=== PATIENT | male | born 1925 | race Caucasian/White ===

== ENCOUNTER 2016-08-03 13:42 | Emergency (ER) | payer OTHER ==
[2016-08-03 13:46] VITALS: BMI 28.1
[2016-08-03 15:24] LABS: ALBUMIN 4.1 g/dl (3.4-5.0); ANION GAP 7 (8-16); BILIRUBIN,TOTAL 0.5 mg/dL (0.2-1.0); CALCIUM 9.4 mg/dL (8.5-10.1); CO2 30 mmol/L (21-32); GLUCOSE,RANDOM 79 mg/dL (74-106); SGOT/AST 14 U/L (15-37); SGPT/ALT 22 U/L (12-78); TOT PROT 7.5 g/dl (6.4-8.2)
[2016-08-03 15:26] LABS: INR 1.08 (0.82-1.09); PROTHROMBIN TIME (PATIENT) 11.9 SEC (9.98-11.88)
[2016-08-03 15:27] LABS: ALK PHOS 74 U/L (45-117); TROPONIN I < 0.02 ng/ml (0.00-0.05)
[2016-08-03 15:29] LABS: ACTIVATED PTT 29.6 SECONDS (26.9-34.4)
--- NOTE | 2016-08-03 15:48 | PDOC ---
History of Present Illness - History of Present Illness Initial Comments: 08/03/16 16:40 The patient is a 89 year old male, with a significant past medical history of CAD s/p CABG and hypertension, who presents to the emergency department sent from Dr. Montano office today for diaphoresis, chest pain, and shortness of breath. The patient states his chest pain feels like pressure and has been constant since the onset at the doctor's office around noon today. He reports taking nitroglycerin today. He reports having a diffuse headache at this time. He denies dizziness. He denies fever, chills, nausea, vomit, diarrhea and constipation. He denies dysuria, frequency, urgency and hematuria. Allergies: NKDA Social history: denies toxic habits PCP - Dr. Meyer Software Installation Engineer - Dr. Lyman/Dr. Veloz <Patt Bonner - Last Filed: 08/03/16 17:37> <Kourtney Rey - Last Filed: 08/17/16 12:25> - General Chief Complaint: Chest Pain Stated Complaint: CHEST PAIN Time Seen by Provider: 08/03/16 14:48 Past History <Patt Bonner - Last Filed: 08/03/16 17:37> - Past Medical History Anemia: No Asthma: No Cancer: No Cardiac Disorders: Yes ([place]) CVA: No COPD: No CHF: No Dementia: No Diabetes: No GI Disorders: No Disorders: No HTN: Yes Hypercholesterolemia: Yes Liver Disease: No Seizures: No Thyroid Disease: No - Surgical History Abdominal Surgery: Yes (suzanne.inguinal hernias 10 yrs ago) Appendectomy: No Cardiac Surgery: Yes (5 bypass 1988) Cholecystectomy: No Lung Surgery: No Neurologic Surgery: No Orthopedic Surgery: No - Psycho/Social/Smoking Cessation Hx Suicidal Ideation: No Smoking History: Former smoker Have you smoked in the past 12 months: No Information on smoking cessation initiated: No Hx Alcohol Use: Yes (1 BEER DAILY) Drug/Substance Use Hx: No <Kourtney Rey - Last Filed: 08/17/16 12:25> - Past Medical History Allergies/Adverse Reactions: Allergies Allergy/AdvReac Type Severity Reaction Status Date / Time No Known Allergies Allergy Verified 08/03/16 13:46 Home Medications: Ambulatory Orders Clopidogrel Bisulfate [Plavix] 75 mg PO DAILY 08/16/12 Lisinopril [Prinivil -] 20 mg PO DAILY 07/01/13 Furosemide [Lasix -] 40 mg PO Q48H 08/03/15 Cyanocobalamin (Vitamin B-12) [Vitamin B12] 1,000 mcg PO DAILY 08/03/16 Hydralazine HCl [Apresoline -] 25 mg PO BID 08/03/16 Hydrocortisone Acetate [Anusol Hc Suppository -] 25 mg RC DAILY 08/03/16 Ubidecarenone/Vit E Acetate [Co Q-10 100 mg Softgel] 1 each PO DAILY 08/03/16 Review of Systems - Review of Systems Able to Perform ROS?: Yes Comments:: GENERAL/CONSTITUTIONAL: No fever or chills. No weakness. HEAD, EYES, EARS, NOSE AND THROAT: No change in vision. No ear pain or discharge. No sore throat. CARDIOVASCULAR: +Chest pressure. RESPIRATORY: No cough, wheezing, or hemoptysis. GASTROINTESTINAL: No nausea, vomiting, diarrhea or constipation. GENITOURINARY: No dysuria, frequency, or change in urination. MUSCULOSKELETAL: No joint or muscle swelling or pain. No neck or back pain. SKIN: No rash NEUROLOGIC: No headache, vertigo, loss of consciousness, or change in strength/ sensation. ENDOCRINE: No increased thirst. No abnormal weight change. HEMATOLOGIC/LYMPHATIC: No anemia, easy bleeding, or history of blood clots. ALLERGIC/IMMUNOLOGIC: No hives or skin allergy. <Kourtney Rey - Last Filed: 08/17/16 12:25> *Physical Exam - Vital Signs Last Vital Signs Temp Pulse Resp BP Pulse Ox 97.5 F L 53 L 18 179/73 98 08/03/16 13:43 08/03/16 13:43 08/03/16 13:43 08/03/16 13:43 08/03/16 15:30 <Patt Bonner - Last Filed: 08/03/16 17:37> - Vital Signs Last Vital Signs Temp Pulse Resp BP Pulse Ox 97.5 F L 53 L 18 179/73 98 08/03/16 13:43 08/03/16 13:43 08/03/16 13:43 08/03/16 13:43 08/03/16 15:30 - Physical Exam Comments: GENERAL: Awake, alert, and fully oriented, in no acute distress HEAD: No signs of trauma EYES: PERRLA, EOMI, sclera anicteric, conjunctiva clear ENT: Auricles normal inspection, hearing grossly normal, nares patent, oropharynx clear without exudates. Moist mucosa NECK: Normal ROM, supple, no lymphadenopathy, JVD, or masses LUNGS: Breath sounds equal, clear to auscultation bilaterally. No wheezes, and no crackles HEART: Regular rate and rhythm, normal S1 and S2, no murmurs, rubs or gallops ABDOMEN: Soft, nontender, normoactive bowel sounds. No guarding, no rebound. No masses EXTREMITIES: Normal range of motion, no edema. No clubbing or cyanosis. No cords, erythema, or tenderness NEUROLOGICAL: Cranial nerves II through XII grossly intact. Normal speech, normal gait SKIN: Warm, Dry, normal turgor, no rashes or lesions noted. <Kourtney Rey - Last Filed: 08/17/16 12:25> ED Treatment Course - LABORATORY CBC & Chemistry Diagram: 08/03/16 15:00 08/03/16 14:45 - ADDITIONAL ORDERS Additional order review: Laboratory Results 08/03/16 08/03/16 14:45 14:45 INR 1.08 PTT (Actin FS) 29.6 Sodium 141 Potassium 4.8 Chloride 104 Carbon Dioxide 30 Anion Gap 7 L BUN 29 H Random Glucose 79 Calcium 9.4 Total Bilirubin 0.5 D AST 14 L ALT 22 Alkaline Phosphatase 74 Creatine Kinase 56 Troponin I < 0.02 Total Protein 7.5 Albumin 4.1 D <Patt Bonner - Last Filed: 08/03/16 17:37> - LABORATORY CBC & Chemistry Diagram: 08/03/16 15:00 08/03/16 14:45 - ADDITIONAL ORDERS Additional order review: Laboratory Results 08/03/16 14:45 Sodium 141 Potassium 4.8 Chloride 104 Carbon Dioxide 30 Anion Gap 7 L BUN 29 H Random Glucose 79 Calcium 9.4 Total Bilirubin 0.5 D AST 14 L ALT 22 Alkaline Phosphatase 74 Creatine Kinase 56 Troponin I < 0.02 Total Protein 7.5 Albumin 4.1 D - RADIOLOGY Radiology Studies Ordered: Category Date Time Status CHEST X-RAY PORTABLE* [RAD] Stat Radiology 08/03/16 14:59 Completed <Kourtney Rey - Last Filed: 08/17/16 12:25> Medical Decision Making - Medical Decision Making 08/03/16 17:39 Dr. Lyman was paged via phone answering service at 17:39 requesting a call back for doctor to doctor consult. I have been informed that Dr. Souza is covering for the group and will return my call shortly. <Patt Bonner - Last Filed: 08/03/16 17:37> - Medical Decision Making Discussed with Dr. Souza, covering Dr. Lyman. Family prefers to do serial CE x2, declined admission, as patient becomes extremely agitated when admitted to hospital. Dr. Souza is ok with second CE and if negative, outpatient f/u. <Kourtney Rey - Last Filed: 08/17/16 12:25> *DC/Admit/Observation/Transfer <Patt Bonner - Last Filed: 08/03/16 17:37> <Kourtney Rey - Last Filed: 08/17/16 12:25> Diagnosis at time of Disposition: Chest pain Qualifiers: Chest pain type: unspecified Qualified Code(s): R07.9 - Chest pain, unspecified - Discharge Dispostion Disposition: HOME - Referrals Referrals: Khadar Meyer MD [Primary Care Provider] - - Patient Instructions Printed Discharge Instructions: DI for Chest Pain
[2016-08-03 16:46] LABS: COCKROFT - GAULT 32.75; CREATININE 1.8 mg/dL (0.7-1.3)
[2016-08-03 17:12] LABS: BASOPHIL 0.5 % (0-2.0); EOSINOPHIL 2.6 % (0-4.5); MCH 31.7 pg (25.7-33.7); MCHC 33.2 g/dl (32.0-35.9); MEAN CELL VOLUME 95.6 fl (80-96); MEAN PLT VOLUME 8.5 fl (7.5-11.1); NEUTROPHILS 74.3 % (42.8-82.8); PLATELET COUNT 135 K/MM3 (134-434); RDW 13.6 % (11.9-15.9); WHITE BLOOD COUNT 7.9 K/mm3 (4.0-10.0)
[2016-08-03 19:16] VITALS: TEMP 97.8
[2016-08-03] MEDS ORDERED: ACETAMINOPHEN 325 MG TABLET (FP) PO ONE (19:48)
[2016-08-03] MEDS ORDERED: ACETAMINOPHEN 325 MG TABLET (FP) ONE (19:48)
[2016-08-03 21:30] LABS: TROPONIN I < 0.02 ng/ml (0.00-0.05)
--- NOTE | 2016-08-03 21:40 | PDOC ---
*Physical Exam - Vital Signs Last Vital Signs Temp Pulse Resp BP Pulse Ox 97.8 F 66 18 158/70 100 08/03/16 19:15 08/03/16 19:15 08/03/16 19:15 08/03/16 19:15 08/03/16 19:15 ED Treatment Course - LABORATORY CBC & Chemistry Diagram: 08/03/16 15:00 08/03/16 14:45 - ADDITIONAL ORDERS Additional order review: Laboratory Results 08/03/16 08/03/16 08/03/16 20:24 14:45 14:45 INR 1.08 PTT (Actin FS) 29.6 Sodium 141 Potassium 4.8 Chloride 104 Carbon Dioxide 30 Anion Gap 7 L BUN 29 H Creatinine Y Creat Clearance w eGFR 35.79 Random Glucose 79 Calcium 9.4 Total Bilirubin 0.5 D AST 14 L ALT 22 Alkaline Phosphatase 74 Creatine Kinase 45 56 Troponin I < 0.02 < 0.02 Total Protein 7.5 Albumin 4.1 D 08/03/16 15:00 RBC 4.26 MCV 95.6 MCHC 33.2 RDW 13.6 MPV 8.5 D Neutrophils % 74.3 Lymphocytes % 12.5 D Monocytes % 10.1 Eosinophils % 2.6 Basophils % 0.5 - Medications Given in the ED: ED Medications Discontinued Medications Generic Name Dose Route Start Last Admin Trade Name Christina PRN Reason Stop Dose Admin Acetaminophen 975 mg 08/03/16 19:48 08/03/16 19:56 Tylenol - PO 08/03/16 19:49 975 mg ONCE ONE Administration *DC/Admit/Observation/Transfer Diagnosis at time of Disposition: Chest pain Qualifiers: Chest pain type: unspecified Qualified Code(s): R07.9 - Chest pain, unspecified - Discharge Dispostion Disposition: HOME Condition at time of disposition: Stable Admit: No - Patient Instructions Printed Discharge Instructions: DI for Chest Pain
[2016-08-03 21:48] VITALS: BP 152/65; PULSE 56
--- NOTE | 2016-08-04 11:11 | EKG ---
Test Reason : Blood Pressure : / mmHG Vent. Rate : 050 BPM Atrial Rate : 050 BPM P-R Int : 240 ms QRS Dur : 148 ms QT Int : 504 ms P-R-T Axes : 050 -65 035 degrees QTc Int : 459 ms SINUS BRADYCARDIA WITH 1ST DEGREE A-V BLOCK LEFT AXIS DEVIATION LEFT BUNDLE BRANCH BLOCK ABNORMAL ECG WHEN COMPARED WITH ECG OF 03-AUG-2015 19:13, NO SIGNIFICANT CHANGE WAS FOUND Confirmed by FRIDA BLAND MD ([id number]) on 08/04/2016 11:10:43 AM Referred By: Confirmed By:FRIDA BLAND MD
== END 2016-08-03 21:50 | disposition home or self-care (01) ==
LOC: JER 13:42
DX: I25.10 Atherosclerotic heart disease of native coronary artery without angina pectoris (principal); I11.9 Hypertensive heart disease without heart failure; Z95.1 Presence of aortocoronary bypass graft; I25.2 Old myocardial infarction
CPT/HCPCS: 36415; 71010-TC; 80053; 82550; 82565; 84484; 85025; 85610; 85730; 93005; 93010; 99285-25

== ENCOUNTER 2017-08-16 12:54 | Inpatient (IN) | payer OTHER ==
[2017-08-16 13:07] VITALS: BMI 27.8
[2017-08-16] MEDS ORDERED: SODIUM CHLORIDE 500 ML IV STA (14:04)
--- NOTE | 2017-08-16 14:11 | PDOC ---
History of Present Illness - General Chief Complaint: Diarrhea Stated Complaint: DIARRHEA Time Seen by Provider: 08/16/17 13:37 History Source: Patient, Family Exam Limitations: No Limitations - History of Present Illness Travel History: No Initial Comments: 08/16/17 14:05 Patient brought to emergency department with recommendation from Dr. Meyer , for evaluation of worsening diarrhea this past week. States has had too numerous to count episodes which Dr. Pedro and Mitch are aware of. [facility] had some orders and laboratory work drawn and sent to [facility] yesterday, also included requesting for stool samples which patient has brought to the emergency department. [facility] obtain this morning . Patient's suffers from chronic intermittent bouts of loose and watery stool that generally self resolve. Dr. Pedro manages intermittent constipation with MiraLAX but recommends patient continue taking throughout his stool loose versus constipated cycle to avoid any obstruction. This episode has lasted for approximately one week, and daughter feels has been worsening. Patient denies fever, nausea or vomiting, states has some intermittent cramping for episode of diarrhea. Denies history of GI bleed, although patient takes Plavix for cardiac history and surgery. Patient denies recent travel, any known tainted food ingestion, no one else at home is sick. No recent change in any medications . States lives alone however daughter lives close by. Denies fevers, cough, ear or throat pain, no recent illness although was treated with antibiotics early June for upper respiratory illness. C. difficile was tested at that time which was negative. Has some increasing renal dysfunction but no history of liver disease or hepatitis. Patient states feels bloated but is not severely uncomfortable or in pain. 08/16/17 14:12 Timing/Duration: reports: getting worse Quality: reports: moderate Abdominal Pain Onset Location: reports: generalized abdomen Pain Radiation: reports: no radiation Activities at Onset: reports: none Past History - Travel Traveled outside of the country in the last 30 days: No Close contact w/someone who was outside of country & ill: No - Past Medical History Allergies/Adverse Reactions: Allergies Allergy/AdvReac Type Severity Reaction Status Date / Time No Known Allergies Allergy Verified 08/16/17 13:04 Home Medications: Ambulatory Orders Clopidogrel Bisulfate [Plavix] 75 mg PO DAILY 08/16/12 Lisinopril [Prinivil -] 20 mg PO DAILY 07/01/13 Furosemide [Lasix -] 40 mg PO Q48H 08/03/15 Cyanocobalamin (Vitamin B-12) [Vitamin B12] 1,000 mcg PO DAILY 08/03/16 Ubidecarenone/Vit E Acet [Co Q-10 100 mg Softgel] 1 each PO DAILY 08/03/16 hydrALAZINE HCL [Apresoline -] 25 mg PO BID 08/03/16 Allopurinol [Zyloprim -] 100 mg PO DAILY 08/16/17 Atorvastatin Ca [Lipitor] 20 mg PO HS 08/16/17 Metoprolol Tartrate 50 mg PO BID 08/16/17 Anemia: No Asthma: No Cancer: No Cardiac Disorders: Yes ([place]) CVA: No COPD: No CHF: No Dementia: No Diabetes: No GI Disorders: No Disorders: No HTN: Yes Hypercholesterolemia: Yes Liver Disease: No Seizures: No Thyroid Disease: No - Surgical History Abdominal Surgery: Yes (suzanne.inguinal hernias 10 yrs ago) Appendectomy: No Cardiac Surgery: Yes (5 bypass 1988) Cholecystectomy: No Lung Surgery: No Neurologic Surgery: No Orthopedic Surgery: No - Suicide/Smoking/Psychosocial Hx Smoking History: Former smoker Have you smoked in the past 12 months: No Information on smoking cessation initiated: No Hx Alcohol Use: Yes (1 BEER DAILY) Drug/Substance Use Hx: No Abd/GI Specific PMHX - Complaint Specific PMHX Colitis: Yes Hepatitis: No Irritable Bowel Synd (IBS): Yes (questionable- never diagnosed ) GI Ulcer Disease: No Review of Systems - Review of Systems Able to Perform ROS?: Yes Is the patient limited Turkish proficient: Yes Constitutional: Yes: Symptoms Reported, See HPI, Malaise. No: Loss of Appetite HEENTM: Yes: See HPI, Other (wears hearing aids bilateral ). No: Symptoms Reported Respiratory: Yes: See HPI. No: Symptoms reported, Cough, Shortness of Breath, Wheezing Cardiac (ROS): Yes: See HPI, Edema (chroninc peripheral edema). No: Symptoms Reported, Chest Pain ABD/GI: Yes: Symptoms Reported, See HPI, Abdominal Distended, Diarrhea, Abdominal cramping. No: Nausea, Rectal Bleeding, Vomiting, Tarry Stools : Yes: See HPI. No: Symptoms Reported Integumentary: Yes: See HPI. No: Symptoms Reported Neurological: Yes: See HPI. No: Symptoms reported, Headache All Other Systems: Reviewed and Negative *Physical Exam - Vital Signs Last Vital Signs Temp Pulse Resp BP Pulse Ox 97.6 F 73 19 103/52 99 08/16/17 13:04 08/16/17 13:04 08/16/17 13:04 08/16/17 13:04 08/16/17 13:04 - Physical Exam General Appearance: Yes: Nourished, Appropriately Dressed, Mild Distress, Moderate Distress HEENT: positive: KATHRYN (very pale conjuctivae). negative: Rhinorrhea, Sinus Tenderness Neck: positive: Supple. negative: Lymphadenopathy (R), Lymphadenopathy (L) Respiratory/Chest: positive: Lungs Clear, Normal Breath Sounds. negative: Crackles, Wheezing Cardiovascular: positive: Regular Rhythm Gastrointestinal/Abdominal: positive: Soft. negative: Tender (bloated/ distended abd), Guarding, Rebound, Tenderness, Hepatomegaly, Spleenomegaly Musculoskeletal: positive: Other. negative: Normal Inspection, CVA Tenderness Extremity: positive: Normal Capillary Refill, Normal Inspection, Normal Range of Motion. negative: Tender Integumentary: positive: Warm, Pale (very pale ) Neurologic: positive: rock star II-XII NML intact, Fully Oriented, Alert, Normal Mood/ Affect, Normal Response, Motor Strength 5/ ED Treatment Course - LABORATORY CBC & Chemistry Diagram: 08/16/17 14:48 08/16/17 14:48 - RADIOLOGY Radiology Studies Ordered: Category Date Time Status CHEST PA & LAT [RAD] Stat Radiology 08/16/17 13:59 Ordered Medical Decision Making - Medical Decision Making 08/16/17 14:[address] Meyer who has requested patient to be admitted for further evaluation, hydration, and testing. patient updated to plan. 08/16/17 14:43 08/16/17 14:54 Dr Soria returned call, understands patient admission and will see patient here when possible. *DC/Admit/Observation/Transfer Diagnosis at time of Disposition: Acute diarrhea Renal failure Qualifiers: Renal failure chronicity: unspecified chronicity Qualified Code(s): N19 - Unspecified kidney failure - Discharge Dispostion Condition at time of disposition: Stable Decision to Admit order: Yes - Referrals - Patient Instructions - Post Discharge Activity
[2017-08-16 15:04] LABS: BASO % 0.3 % (0-2.0); EOS % 22.7 % (0-4.5); HEMATOCRIT 32.6 % (35.4-49); HEMOGLOBIN 11.1 GM/dL (11.7-16.9); LYMPH % 11.6 % (8-40); MCH 33.2 pg (25.7-33.7); MEAN CELL VOLUME 97.5 fl (80-96); MEAN PLT VOLUME 7.9 fl (7.5-11.1); MONO % 10.3 % (3.8-10.2); NEUT % 55.1 % (42.8-82.8); PLATELET COUNT 149 K/MM3 (134-434); RBC 3.35 M/mm3 (4.00-5.60); RDW 13.8 % (11.9-15.9); WHITE BLOOD COUNT 10.1 K/mm3 (4.0-10.0)
[2017-08-16 15:24] LABS: ALBUMIN 3.1 g/dl (3.4-5.0); ANION GAP 10 (8-16); BLOOD UREA NITROGEN 54 mg/dL (7-18); CALCIUM 8.8 mg/dL (8.5-10.1); CHLORIDE 108 mmol/L (98-107); CO2 22 mmol/L (21-32); CREATININE 3.6 mg/dL (0.7-1.3); GLUCOSE,RANDOM 83 mg/dL (74-106); LIPASE 175 U/L (73-393); SODIUM 140 mmol/L (136-145)
[2017-08-16] MEDS ORDERED: SODIUM CHLORIDE 1,000 ML IV SCH (15:30)
--- NOTE | 2017-08-16 15:30 | HP ---
CHIEF COMPLAINT: Diarrhea PCP: Dr. Meyer GI: Dr. Barton HISTORY OF PRESENT ILLNESS: 89 year-old male with a PMH significant for HTN, HLD, CAD s/p CABG x 5v, Kaposi' s sarcoma,recurrent episodes of diarrhea followed by Dr. Barton as an outpatient. Patient's diarrhea episodes are usually self-limiting. However, he presents today to the ED with diarrhea x 7 days with episodes too numerous to count. Patient complains of fatigue, SOB, GUPTA, decreased exercise tolerance x 1 month. He complains of worsening lower extremity edema. He denies PND or orthopnea. He denies fever, sweats, chills, nausea and vomiting. Denies hematuria, hematemesis, hematochezia. Was on antibiotics in early June for an upper respiratory infection and c. diff study from that time was negative. ER course was notable for: (1) BUN 54, Cr 3.6 (baseline 1.8) (2) BNP 1919 (3) Occult stool negative (4) Eosinophils 22.7 Recent Travel: No PAST MEDICAL HISTORY: Hypertension Hyperlipidemia Coronary artery disease s/p CABG x 5v Kaposi's sarcoma Recurrent diarrhea PAST SURGICAL HISTORY: Bilateral hernia repair Deviated septum repair Social History: Smoking: quit 70 years ago Alcohol: occasional beer Drugs: no Family History: Allergies No Known Allergies Allergy (Verified 08/16/17 13:04) HOME MEDICATIONS: Home Medications Medication Instructions Recorded Clopidogrel Bisulfate [Plavix] 75 mg PO DAILY 08/16/12 Lisinopril [Prinivil -] 20 mg PO DAILY 07/01/13 Furosemide [Lasix -] 40 mg PO Q48H 08/03/15 Cyanocobalamin (Vitamin B-12) 1,000 mcg PO DAILY 08/03/16 [Vitamin B12] Hydrocortisone Acetate [Anusol Hc 25 mg RC DAILY 08/03/16 Suppository -] Ubidecarenone/Vit E Acet [Co Q-10 1 each PO DAILY 08/03/16 100 mg Softgel] hydrALAZINE HCL [Apresoline -] 25 mg PO BID 08/03/16 REVIEW OF SYSTEMS CONSTITUTIONAL: +fatigue, weakness Absent: fever, chills, diaphoresis, malaise, loss of appetite, weight change HEENT: Absent: rhinorrhea, nasal congestion, throat pain, throat swelling, difficulty swallowing, mouth swelling, ear pain, eye pain, visual changes CARDIOVASCULAR: +SOB, GUPTA, decreased exercise tolerance, worsening bilateral lower extremity edema Absent: chest pain, syncope, palpitations, irregular heart rate, lightheadedness RESPIRATORY: Absent: cough, shortness of breath, dyspnea with exertion, orthopnea, wheezing, stridor, hemoptysis GASTROINTESTINAL: Absent: abdominal pain, abdominal distension, nausea, vomiting, diarrhea, constipation, melena, hematochezia GENITOURINARY: Absent: dysuria, frequency, urgency, hesitancy, hematuria, flank pain, genital pain MUSCULOSKELETAL: Absent: myalgia, arthralgia, joint swelling, back pain, neck pain SKIN: Absent: rash, itching, pallor HEMATOLOGIC/IMMUNOLOGIC: Absent: easy bleeding, easy bruising, lymphadenopathy, frequent infections ENDOCRINE: Absent: unexplained weight gain, unexplained weight loss, heat intolerance, cold intolerance NEUROLOGIC: Absent: headache, focal weakness or paresthesias, dizziness, unsteady gait, seizure, mental status changes, bladder or bowel incontinence PSYCHIATRIC: Absent: anxiety, depression, suicidal or homicidal ideation, hallucinations. PHYSICAL EXAMINATION Vital Signs - 24 hr 08/16/17 08/16/17 13:04 14:49 Temperature 97.6 F Pulse Rate 73 Respiratory 19 Rate Blood Pressure 103/52 O2 Sat by Pulse 99 99 Oximetry (%) GENERAL: Awake, alert, and fully oriented, in no acute distress. HEAD: Normal with no signs of trauma. EYES: Pupils equal, round and reactive to light, extraocular movements intact, sclera anicteric, conjunctiva clear. No lid lag. EARS, NOSE, THROAT: Ears normal, nares patent, oropharynx clear without exudates. Moist mucous membranes. NECK: Normal range of motion, supple without lymphadenopathy, JVD, or masses. LUNGS: Breath sounds equal, clear to auscultation bilaterally. No wheezes, and no crackles. No accessory muscle use. HEART: Regular rate and rhythm, normal S1 and S2 ABDOMEN: Soft, nontender, not distended, normoactive bowel sounds, no guarding, no rebound, no masses MUSCULOSKELETAL: Normal range of motion at all joints. No bony deformities or tenderness. No CVA tenderness. UPPER EXTREMITIES: 2+ pulses, warm, well-perfused. No cyanosis. No clubbing. No peripheral edema. LOWER EXTREMITIES: 2+ pulses, warm, well-perfused. No calf tenderness. 3+ RLE pedal edema extending to knee; 2+ LLE pedal edema extending to knee; bilateral venous stasis changes; dessicated, dark-pigmented lesions on left foot NEUROLOGICAL: Cranial nerves II-XII intact. Normal speech. Laboratory Results - last 24 hr 08/16/17 08/16/17 14:20 14:48 WBC 10.1 H RBC 3.35 L D Hgb 11.1 L D Hct 32.6 L D MCV 97.5 H MCH 33.2 MCHC 34.0 RDW 13.8 Plt Count 149 MPV 7.9 Neutrophils % 55.1 D Lymphocytes % 11.6 Monocytes % 10.3 H Eosinophils % 22.7 H* D Basophils % 0.3 Nucleated RBC % 0 Stool Occult Blood Negative ASSESSMENT/PLAN 89 year-old male with a PMH significant for HTN, HLD, CAD s/p CABG x 5v, Kaposi' s sarcoma, HIV, and recurrent episodes of diarrhea. Placed on observation for diarrhea. Diarrhea --monitor electrolytes closely --continue miralax daily --IV fluids --CTAP pending --last colonoscopy 10 years ago --stool studies --Dr. 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 --Cr 3.6, baseline ~1.8 --hold home lasix, ACEI/ARB --IV fluids r/o heart failure --per daughter who is a nurse at [employer], no previous diagnosis of heart failure --she has noticed worsening lower extremity edema, increased SOB, decreased exercise tolerance x 1 month --BNP 1919 (last measured 06/2013 @ 649) --echo ordered --CXR pending Hyperlipidemia --continue Lipitor Kaposi's sarcoma --see pathology reports 02/08/16 and 04/17/16 Hypomagnesemia --repleted FEN Fluids: NS @ 75mL/hr Electrolytes: replete as indicated Nutrition: clears DVT prophylaxis: subq heparin Physical therapy Dispo: continues to require observation. Full code. Visit type - Emergency Visit Emergency Visit: Yes ED Registration Date: 08/16/17 Care time: The patient presented to the Emergency Department on the above date and was hospitalized for further evaluation of their emergent condition. - New Patient This patient is new to me today: Yes Date on this admission: 08/17/17 - Critical Care Critical Care patient: No Hospitalist Screening - Colonoscopy Questionnaire Colonoscopy Questionnaire: Colonoscopy Questionnaire - Patient: 50 - 75 years old and never had a screening colonoscopy: No History of colon or rectal polyps, or CA: No History of IBD, Crohn's disease or UC: No History of abdominal radiation therapy as a child: No - Relative: 1 with colon or rectal CA, or polyps at age 60 or younger: Unknown Colon or rectal CA diagnosed at age 45 or younger: Unknown Multiple relatives with colon or rectal CA: Unknown - Outcome: Screening Result: Negative Screen
[2017-08-16 15:32] LABS: INR 1.2 (0.82-1.09); PROTHROMBIN TIME (PATIENT) 13.6 SEC (9.7-13.0)
[2017-08-16 15:38] LABS: ALK PHOS 88 U/L (45-117); BILIRUBIN,TOTAL 0.5 mg/dL (0.2-1.0); POTASSIUM 4.1 mmol/L (3.5-5.1); SGOT/AST 15 U/L (15-37); SGPT/ALT 11 U/L (12-78); TOT PROT 6.4 g/dl (6.4-8.2)
[2017-08-16 16:55] LABS: URINE APPEARANCE SLCLOUDY; URINE BILIRUBIN NEGATIVE (<2.0 mg/dL); URINE COLOR YELLOW; URINE GLUCOSE (UA) NEGATIVE (NEGATIVE); URINE KETONE NEGATIVE (NEGATIVE); URINE LEUK ESTERASE NEGATIVE (NEGATIVE); URINE NITRITE NEGATIVE (NEGATIVE); URINE PROTEIN NEGATIVE (NEGATIVE); URINE UROBILINOGEN NEGATIVE mg/dL (0.2-1.0)
[2017-08-16 18:50] LABS: PLATELET ESTIMATE ADEQUATE
--- NOTE | 2017-08-16 21:03 | CON.GI ---
Consult Consult Specialty:: Gastroenterology Referred by:: Dr Meyer Reason for Consultation:: Diarrhea - History of Present Illness Chief Complaint: Diarrhea History of Present Illness: 89M presents with intractible diarrhea, azotemia and dehydration. He has been having over 10 liquidy and nonbloody diarrhea movements daily for the past few days. He denies abdominal pain, fevers and tenesmus. He denies recent foreign travel but believes that he did take an antibiotic several months ago for a URI. I have been seeing him for many years for apparent paradoxical diarrhea which has been managed with Miralax. I last saw him in 07/11 when a stool screen for C diff toxin and enteric pathogens was unrevealing. He again responded well to Miralax and Beano. He last had both an EGD and a colonoscopy on 12/08/05 which revealed sigmoid spasms but an otherwise normal colon. EGD revealed multiple small shallow gastric body ulcers and a small nodule in the antrum. Biopsies failed to reveal H. pylori. I diagnosed his grandaughter with ulcerative colitis. The patient is not HIV positive - History Source History Provided By: Patient, Medical Record Limitations to Obtaining History: No Limitations - Past Medical History Cardio/Vascular: Yes: CAD (s/p CABG 1987), HTN, Hyperlipdemia Gastrointestinal: Yes: Constipation, Gastritis, GERD, Hemorrhoids, Peptic Ulcer Disease (duodenal ulcer 2001, gastric ulcers 2005) Hepatobiliary: Yes: Cholelithiasis Renal/: Yes: BPH Musculoskeletal: Yes: Chronic low back pain (spinal stenosis) Rheumatology: Yes: Gout Dermatology: Yes: Other (Multiple cutaneous Kaposi sarcoma excisions) - Past Surgical History Past Surgical History: Yes: CABG (1987), Colonoscopy, Hernia Repair ([place] and [place] ), Tonsillectomy, Upper Endoscopy Additional Surgical History: multiple Kaposi sarcoma excisions. bilateral stapedectomies. deviated septum repair and nasal polypectomy - Alcohol/Substance Use Hx Alcohol Use: Yes (1 BEER DAILY) - Smoking History Smoking history: Former smoker Have you smoked in the past 12 months: No - Social History Usual Living Arrangement: With Child ADL: Family Assistance Place of : [facility] History of Recent Travel: No Home Medications - Allergies Allergies/Adverse Reactions: Allergies Allergy/AdvReac Type Severity Reaction Status Date / Time No Known Allergies Allergy Verified 08/16/17 13:04 - Home Medications Home Medications: Ambulatory Orders Clopidogrel Bisulfate [Plavix] 75 mg PO DAILY 08/16/12 Lisinopril [Prinivil -] 20 mg PO DAILY 07/01/13 Furosemide [Lasix -] 40 mg PO Q48H 08/03/15 Cyanocobalamin (Vitamin B-12) [Vitamin B12] 1,000 mcg PO DAILY 08/03/16 Ubidecarenone/Vit E Acet [Co Q-10 100 mg Softgel] 1 each PO DAILY 08/03/16 hydrALAZINE HCL [Apresoline -] 25 mg PO BID 08/03/16 Allopurinol [Zyloprim -] 100 mg PO DAILY 08/16/17 Atorvastatin Ca [Lipitor] 20 mg PO HS 08/16/17 Metoprolol Tartrate 50 mg PO BID 08/16/17 Family Disease History - Family Disease History Family Disease History: Heart Disease: Mother ( CHF), CA: Brother (prostate cancer), Sister (breast cancer), Other: Father ( septic shock) Other Family History: grandaughter has ulcerative colitis Review of Systems - Review of Systems Constitutional: reports: Weakness Eyes: reports: No Symptoms HENT: reports: No Symptoms Neck: reports: No Symptoms Cardiovascular: reports: No Symptoms Respiratory: reports: No Symptoms Gastrointestinal: reports: Bloating, Diarrhea Genitourinary: reports: No Symptoms Musculoskeletal: reports: Back Pain Neurological: reports: No Symptoms Physical Exam-GI Vital Signs: Vital Signs Temperature 97.8 F 08/16/17 17:45 Pulse Rate 78 08/16/17 17:45 Respiratory Rate 18 08/16/17 17:45 Blood Pressure 128/54 08/16/17 17:45 O2 Sat by Pulse Oximetry (%) 99 08/16/17 17:45 CBC,CMP WBC 10.1 K/mm3 (4.0-10.0) H 08/16/17 14:48 RBC 3.35 M/mm3 (4.00-5.60) L D 08/16/17 14:48 Hgb 11.1 GM/dL (11.7-16.9) L D 08/16/17 14:48 Hct 32.6 % (35.4-49) L D 08/16/17 14:48 MCV 97.5 fl (80-96) H 08/16/17 14:48 MCH 33.2 pg (25.7-33.7) 08/16/17 14:48 MCHC 34.0 g/dl (32.0-35.9) 08/16/17 14:48 RDW 13.8 % (11.9-15.9) 08/16/17 14:48 Plt Count 149 K/MM3 (134-434) 08/16/17 14:48 MPV 7.9 fl (7.5-11.1) 08/16/17 14:48 Neutrophils % 55.1 % (42.8-82.8) D 08/16/17 14:48 Neutrophils % (Manual) 52.0 % (42.8-82.8) 08/16/17 14:48 Band Neutrophils % 0.0 % 08/16/17 14:48 Lymphocytes % 11.6 % (8-40) 08/16/17 14:48 Lymphocytes % (Manual) 13.0 % (8-40) 08/16/17 14:48 Monocytes % 10.3 % (3.8-10.2) H 08/16/17 14:48 Monocytes % (Manual) 9 % (3.8-10.2) 08/16/17 14:48 Eosinophils % 22.7 % (0-4.5) H* D 08/16/17 14:48 Eosinophils % (Manual) 25.0 % (0-4.5) H 08/16/17 14:48 Basophils % 0.3 % (0-2.0) 08/16/17 14:48 Basophils % (Manual) 1.0 % (0-2.0) 08/16/17 14:48 Nucleated RBC % 0 % (0-0) 08/16/17 14:48 Platelet Estimate Adequate 08/16/17 14:48 Sodium 140 mmol/L (136-145) 08/16/17 14:48 Potassium 4.1 mmol/L (3.5-5.1) 08/16/17 14:48 Chloride 108 mmol/L (98-107) H 08/16/17 14:48 Carbon Dioxide 22 mmol/L (21-32) D 08/16/17 14:48 Anion Gap 10 (8-16) 08/16/17 14:48 BUN 54 mg/dL (7-18) H D 08/16/17 14:48 Creatinine 3.6 mg/dL (0.7-1.3) H D 08/16/17 14:48 Creat Clearance w eGFR 16.04 (>60) 08/16/17 14:48 Random Glucose 83 mg/dL (74-106) 08/16/17 14:48 Calcium 8.8 mg/dL (8.5-10.1) 08/16/17 14:48 Phosphorus 3.7 mg/dL (2.5-4.9) 08/16/17 19:53 Magnesium 1.7 mg/dL (1.8-2.4) L 08/16/17 19:45 Total Bilirubin 0.5 mg/dL (0.2-1.0) 08/16/17 14:48 AST 15 U/L (15-37) 08/16/17 14:48 ALT 11 U/L (12-78) L D 08/16/17 14:48 Alkaline Phosphatase 88 U/L (45-117) 08/16/17 14:48 B-Natriuretic Peptide 1919.88 pg/ml (5-450) H 08/16/17 14:48 Total Protein 6.4 g/dl (6.4-8.2) 08/16/17 14:48 Albumin 3.1 g/dl (3.4-5.0) L D 08/16/17 14:48 Lipase 175 U/L (73-393) 08/16/17 14:48 Current Medications Generic Name Dose Route Start Last Admin Trade Name Freq PRN Reason Stop Dose Admin Allopurinol 100 mg 08/17/17 10:00 Zyloprim - PO DAILY ERIN Atorvastatin Calcium 20 mg 08/16/17 22:00 Lipitor - PO HS ERIN Clopidogrel Bisulfate 75 mg 08/17/17 10:00 Plavix - PO DAILY ERIN Heparin Sodium (Porcine) 5,000 unit 08/16/17 15:30 Heparin - SQ TID ERIN Hydralazine HCl 25 mg 08/16/17 22:00 Apresoline - PO BID ERIN Sodium Chloride 1,000 mls @ 75 mls/hr 08/16/17 15:30 08/16/17 18:02 Normal Saline - IV 75 mls/hr ASDIR ERIN Administration Magnesium Sulfate 2 gm 08/16/17 21:12 Magnesium Sulfate IVPB 08/16/17 21:13 ONCE ONE Metoprolol Tartrate 50 mg 08/16/17 22:00 Lopressor - PO BID ERIN Constitutional: Yes: Calm Eyes: Yes: Conjunctiva Clear HENT: Yes: Normocephalic Neck: Yes: Supple Cardiovascular: Yes: Regular Rate and Rhythm, Other (healed median sternotomy incision) Respiratory: Yes: CTA Bilaterally Gastrointestinal Inspection: Yes: Distention, Scars (healed RIH and LIH incisions) ...Auscultate: Yes: Hyperactive Bowel Sounds ...Palpate: Yes: Soft, Other (nontender) ...Percussion: Yes: Tympanitic ...Rectal Exam: Yes: Deferred (patient complains that he is very sore from wiping, Rectal exam in office on 07/04/17 revealed a 2+prostate and brown guaiac negative stool) Edema: No Peripheral Pulses WNL: Yes Neurological: Yes: Alert, Oriented Labs: CBC, BMP 08/16/17 14:48 08/16/17 14:48 INR, PTT INR 1.20 (0.82-1.09) H 08/16/17 14:48 Laboratory Tests 08/16/17 08/16/17 08/16/17 14:48 14:48 19:45 WBC 10.1 H Eosinophils % 22.7 H* D BUN 54 H D Creatinine 3.6 H D Magnesium 1.7 L Albumin 3.1 L D Imaging - Results Cat Scan: Report Reviewed (Wen Beckwith Name: YESICA GARCIA DEPARTMENT OF RADIOLOGY Phys: Sil Moran NP : [id number] Age: 89 Sex: M [facility] Acct: [id number] Loc: [address] Exam Date: 08/16/17 Status: [place] [address] Unit Number: [id number] EXAM#: TYPE/EXAM: RESULT: [id number] CT/ABDOMEN PELVIS CT W/O CONTR INDICATION: Diarrhea. TECHNIQUE : CT scan of the abdomen and pelvis without oral contrast and without intravenous contrast. COMPARISON: 11/09/2005 CT abdomen and pelvis. FINDINGS: Evaluation of the solid viscera, bowel and vessels is limited without contrast. There is a 3 mm solid noncalcified nodule in the posterior right lung base (image 16 of series 4) there is minimal dependent change in the left lung base. The visualized lung bases are otherwise clear. The heart is not enlarged. There is severe three-vessel coronary artery calcific atherosclerosis. There is aortic valve calcification. Please correlate for aortic stenosis. Normal liver size and contour. The gallbladder is not pathologically distended and contains calcified gallstones. The common bile duct is not dilated. The unenhanced pancreas is unremarkable. Normal size spleen. No adrenal gland mass or nodule. There is symmetric mild renal atrophy. There are no renal or ureteral calculi. No hydroureteronephrosis. There are bilateral renal cortical cysts measuring up to 2.7 x 2.2 cm in the left kidney. There is also a 3.3 x 3.3 cm lower pole left renal sinus cyst. There is posterior saccular outpouching in the infrarenal abdominal aorta which measures 2.5 cm in mid sagittal plane diameter , new since 11/09/2005. There is moderately severe calcification of the abdominal aorta and branch vessels. No definite pathologically enlarged lymph nodes by CT size criteria within the abdomen or pelvis. Normal caliber large and small bowel. There is liquid stool throughout the colon compatible with the provided clinical history of diarrheal illness. A normal- appearing retrocecal appendix is visualized, with the tip contacting the liver. Some mucosal fat deposition within the distal ileum is most compatible with chronic sequela of prior bowel wall inflammation. There is no intraperitoneal free air or free fluid. There is marked prostatomegaly, measuring 6.0 x 7.5 cm, indenting the base the urinary bladder. The urinary bladder is underdistended which limits evaluation. The urinary bladder wall does appear to be diffusely prominent, despite underdistention with submucosal fat deposition from prior inflammation. There are small bilateral inguinal hernias containing fat only. There is osseous demineralization with no evidence of acute fracture. Spondylosis in the visualized spine with multilevel canal and neural foraminal stenosis. There is severe canal stenosis at L4-L5 and moderate to severe canal stenosis at L2-L3 and L3-L4 secondary to bulging annulus, facet arthropathy and thickening of ligamentum flavum. There is severe narrowing of the L4- L5 neural foramina (left worse than right) and right L5-S1 neural foramen with compression of the exiting nerve roots. IMPRESSION: 1. Liquid stool throughout the colon compatible with the provided clinical history of diarrhea limits. 2. No evidence of bowel obstruction or diverticulitis. No definite bowel wall thickening. Normal- appearing appendix. 3. Cholelithiasis. No CT evidence of acute cholecystitis or biliary ductal dilatation. 4. Marked prostatomegaly. Please correlate with PSA and physical exam. 5. Diffusely prominent urinary bladder wall may be attributed to some combination of underdistention, chronic outlet obstruction and/or cystitis. Please correlate clinically, with urinalysis. 6. Please refer to the report above for other findings. Reported By: Adalgisa Garcia DO 08/16/171932 Technologist: Pratik Campuzano Transcribed Date/Time: 08/16/171932 National Sales Representative: Adalgisa Garcia DO Printed Date/Time: By: Signed by: Adalgisa Garcia Signed on: 16-Aug-2017 19:35) Assessment/Plan The CT reveals a fluid filled colon suggestive of colitis as there is obstruction seen. 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 Pancreatic insufficiency has previously been excluded. I will order a VIP level. I have advised a sigmoidoscopy to help establish a diagnosis. I have discussed the potential risks of perforation and hemorrhage. Yesica has consented. IV fluid rehydration has been started. I will increase the rate. Stools will be collected for cultures including parasites given his eosinophilia.
[2017-08-16] MEDS ORDERED: MAGNESIUM 2GM/50ML STERILE WATER IVPB IVPB ONE (21:12)
[2017-08-16] MEDS: HEPARIN NA (PORCINE) 5,000 UNITS/ML 1ML VIAL SQ SCH (23:17)
[2017-08-16] MEDS: DEXTROSE 5%-0.45% SALINE 1,000 ML IV SCH (23:26)
[2017-08-16] MEDS: hydrALAZINE HCL 25 MG TABLET (FP) PO SCH (23:27)
[2017-08-16] MEDS: METOPROLOL TARTRATE 50 MG TABLET (FP) PO SCH (23:27)
[2017-08-16] MEDS: ATORVASTATIN CA 20 MG TABLET (FP) PO SCH (23:27)
[2017-08-17] MEDS: HEPARIN NA (PORCINE) 5,000 UNITS/ML 1ML VIAL SQ SCH (06:34)
[2017-08-17 06:59] LABS: HEMATOCRIT 28.8 % (35.4-49); HEMOGLOBIN 9.9 GM/dL (11.7-16.9); MCH 33.6 pg (25.7-33.7); MCHC 34.4 g/dl (32.0-35.9); MEAN CELL VOLUME 97.6 fl (80-96); PLATELET COUNT 134 K/MM3 (134-434); RBC 2.95 M/mm3 (4.00-5.60); WHITE BLOOD COUNT 9.2 K/mm3 (4.0-10.0)
[2017-08-17 07:28] LABS: ALBUMIN 2.7 g/dl (3.4-5.0); ANION GAP 6 (8-16); BILIRUBIN,TOTAL 0.4 mg/dL (0.2-1.0); BLOOD UREA NITROGEN 54 mg/dL (7-18); CALCIUM 8.1 mg/dL (8.5-10.1); CHLORIDE 112 mmol/L (98-107); CO2 22 mmol/L (21-32); CREATININE 3.1 mg/dL (0.7-1.3); GLUCOSE,RANDOM 119 mg/dL (74-106); MAGNESIUM 2.5 mg/dL (1.8-2.4); PHOSPHOROUS 3.7 mg/dL (2.5-4.9); POTASSIUM 4.3 mmol/L (3.5-5.1); SGOT/AST 6 U/L (15-37); SGPT/ALT 8 U/L (12-78); SODIUM 140 mmol/L (136-145)
[2017-08-17 07:29] LABS: ALK PHOS 76 U/L (45-117); TOT PROT 5.5 g/dl (6.4-8.2)
[2017-08-17] MEDS: CLOPIDOGREL BISULFATE 75 MG TABLET (FP) PO SCH (09:32)
[2017-08-17] MEDS ORDERED: METOPROLOL TARTRATE 50 MG TABLET (FP) ONE (09:34)
[2017-08-17] MEDS ORDERED: hydrALAZINE HCL 25 MG TABLET (FP) ONE (09:34)
[2017-08-17] MEDS ORDERED: ALLOPURINOL 100 MG TABLET (FP) ONE (09:35)
[2017-08-17] MEDS: ALLOPURINOL 100 MG TABLET (FP) PO SCH (09:44)
[2017-08-17] MEDS: PANTOPRAZOLE 40 MG TABLET (FP) PO SCH ×2 (09:44→21:32)
[2017-08-17] MEDS: hydrALAZINE HCL 25 MG TABLET (FP) PO SCH ×2 (09:44→21:32)
[2017-08-17] MEDS: METOPROLOL TARTRATE 50 MG TABLET (FP) PO SCH ×2 (09:44→21:32)
[2017-08-17 09:47] LABS: MONO % 9.4 % (3.8-10.2)
[2017-08-17 09:48] LABS: BASO % 0.2 % (0-2.0); EOS % 25.4 % (0-4.5)
--- NOTE | 2017-08-17 09:53 | PN ---
Progress Note (short form) - Note Progress Note: Patient seen and examined this AM VS stable; lab reviewed. sigmoidoscopy done today by GI physician showed no colitis; he suspects viral gastroenteritis. The patient's baseline BUN/creatinine are 40 and 2.0. He previously had mild eosinophilia to 8%. This increased on this admission. As an outpatient his recent PSA was elevated to 8 and it was a questionable amount of ?debris on his Bladder Sonogram. We Will Get Urological Consult Also patient's diet will be increased. He does have a past history of coronary artery bypass. On exam: Vital Signs Temp 97.5 F L 08/17/17 14:00 Pulse 66 08/17/17 14:00 Resp 18 08/17/17 14:00 BP 116/47 08/17/17 14:00 Pulse Ox 97 08/17/17 17:19 Intake & Output 08/16/17 08/17/17 08/17/17 23:59 11:59 23:59 Intake Total 1125 800 100 Balance 1125 800 100 Weight 178 lb Intake: IV 425 750 100 D5-1/2Ns - 1,000 ml @ 125 425 750 mls/hr IV ASDIR ERIN Rx#: [id number] IVPB 50 Oral 700 Other: Voiding Method Toilet Toilet Toilet # Unmeasured Voids Void 2 Bowel Movement Yes Yes Yes # Bowel Movements 2 Height 5 ft 7 in Body Mass Index (BMI) 27.8 Weight Measurement Method Est/Stated by Patient Patient is alert Walking in the exam room this morning when seen Sclera anicteric. Chest decreased breath sounds. Heart regular Abdomen soft but nontender with some left lower quadrant tenderness. Extremities no pedal edema. Abnormal Lab Results 08/16/17 08/16/17 08/17/17 14:48 19:45 06:15 RBC 2.95 L Hgb 9.9 L D Hct 28.8 L MCV 97.6 H MPV 7.0 L D Eosinophils % 25.4 H* Eosinophils % (Manual) 25.0 H Chloride Anion Gap BUN Creatinine Random Glucose Calcium Magnesium 1.7 L AST ALT C-Reactive Protein Total Protein Albumin 08/17/17 08/17/17 06:15 06:15 RBC Hgb Hct MCV MPV Eosinophils % Eosinophils % (Manual) Chloride 112 H Anion Gap 6 L BUN 54 H Creatinine 3.1 H Random Glucose 119 H D Calcium 8.1 L Magnesium 2.5 H D AST 6 L D ALT 8 L D C-Reactive Protein 3.6 H Total Protein 5.5 L Albumin 2.7 L Impression: Acute diarrhea syndrome, possibly viral gastroenteritis. Marked eosinophilia. Anemia. Acute on chronic renal failure. ASHD status post coronary artery bypass Elevated PSA Possible abnormality on bladder wall on recent sonogram. Plan: Followup lab in a.m. IV fluid Renal and urology, M.D. Followup GI MD Advance diet and see how patient tolerates.
[2017-08-17] MEDS ORDERED: POLYETHYLENE GLYCOL 3350 119 GM BTL PO SCH (10:00)
--- NOTE | 2017-08-17 10:49 | EKG ---
Test Reason : Blood Pressure : / mmHG Vent. Rate : 069 BPM Atrial Rate : 069 BPM P-R Int : 240 ms QRS Dur : 150 ms QT Int : 432 ms P-R-T Axes : 069 -56 044 degrees QTc Int : 462 ms SINUS RHYTHM WITH 1ST DEGREE A-V BLOCK LEFT AXIS DEVIATION LEFT BUNDLE BRANCH BLOCK ABNORMAL ECG WHEN COMPARED WITH ECG OF 03-AUG-2016 14:13, NO SIGNIFICANT CHANGE WAS FOUND Confirmed by FRIDA BLAND MD ([id number]) on 08/17/2017 10:49:30 AM Referred By: Confirmed By:FRIDA BLAND MD
--- NOTE | 2017-08-17 13:47 | PN ---
GI Progress Note Subjective: GI Procedure NOte: Please see scanned colonoscopy report. No colitis was seen. Suspect viral gastroenteritis. Will advance diet. Situation discussed with patient and daughter. Continues to need hydration to rescue kidneys. - Objective Vital Signs: Vital Signs Temperature 97.8 F 08/17/17 12:40 Pulse Rate 51 L 08/17/17 12:55 Respiratory Rate 18 08/17/17 12:55 Blood Pressure 107/46 08/17/17 12:55 O2 Sat by Pulse Oximetry (%) 100 08/17/17 12:55 Constitutional: Well Nourished, No Distress, Calm Eyes: Yes: WNL, Conjunctiva Clear, EOM Intact HENT: Yes: WNL, Atraumatic, Normocephalic Neck: Yes: WNL, Supple, Trachea Midline Cardiovascular: Yes: WNL, Regular Rate and Rhythm Respiratory: Yes: WNL, Regular, CTA Bilaterally Gastrointestinal Inspection: Yes: WNL ...Auscultate: Yes: Normoactive Bowel Sounds ...Rectal Exam: Yes: WNL Genitourinary: Yes: WNL Breast(s): Yes: WNL Musculoskeletal: Yes: WNL Extremities: Yes: WNL Integumentary: Yes: WNL Neurological: Yes: WNL, Alert, Oriented ...Motor Strength: WNL Psychiatric: Yes: WNL, Alert, Oriented Labs: CBC, BMP 08/17/17 06:15 08/17/17 06:15 INR, PTT INR 1.20 (0.82-1.09) H 08/16/17 14:48
[2017-08-17] MEDS: DEXTROSE 5%-0.45% SALINE 1,000 ML IV SCH ×2 (17:13→21:45)
[2017-08-17] MEDS: ATORVASTATIN CA 20 MG TABLET (FP) PO SCH (21:32)
[2017-08-18] MEDS: DEXTROSE 5%-0.45% SALINE 1,000 ML IV SCH ×2 (00:50→09:53)
[2017-08-18 06:06] LABS: HBSAG SCREEN Negative (Negative); HEP B CORE AB, TOT Negative (Negative)
[2017-08-18 07:57] LABS: BASO % 0.3 % (0-2.0); EOS % 24.8 % (0-4.5); HEMATOCRIT 26.5 % (35.4-49); HEMOGLOBIN 9.1 GM/dL (11.7-16.9); LYMPH % 14.5 % (8-40); MCH 33.5 pg (25.7-33.7); MCHC 34.4 g/dl (32.0-35.9); MEAN CELL VOLUME 97.4 fl (80-96); MEAN PLT VOLUME 7.7 fl (7.5-11.1); MONO % 9.6 % (3.8-10.2); NEUT % 50.8 % (42.8-82.8); PLATELET COUNT 119 K/MM3 (134-434); RBC 2.72 M/mm3 (4.00-5.60); RDW 13.7 % (11.9-15.9)
[2017-08-18 08:38] LABS: ALBUMIN 2.5 g/dl (3.4-5.0); ANION GAP 8 (8-16); BILIRUBIN,TOTAL 0.4 mg/dL (0.2-1.0); BLOOD UREA NITROGEN 45 mg/dL (7-18); CALCIUM 7.6 mg/dL (8.5-10.1); CHLORIDE 114 mmol/L (98-107); CO2 19 mmol/L (21-32); CREATININE 2.8 mg/dL (0.7-1.3); GLUCOSE,RANDOM 109 mg/dL (74-106); POTASSIUM 3.9 mmol/L (3.5-5.1); SGOT/AST 7 U/L (15-37); SGPT/ALT 9 U/L (12-78); SODIUM 141 mmol/L (136-145); TOT PROT 5.2 g/dl (6.4-8.2)
[2017-08-18 08:40] LABS: ALK PHOS 67 U/L (45-117)
[2017-08-18] MEDS: CLOPIDOGREL BISULFATE 75 MG TABLET (FP) PO SCH (09:53)
[2017-08-18] MEDS: hydrALAZINE HCL 25 MG TABLET (FP) PO SCH ×2 (09:53→21:24)
[2017-08-18] MEDS: METOPROLOL TARTRATE 50 MG TABLET (FP) PO SCH ×2 (09:53→21:24)
[2017-08-18] MEDS: PANTOPRAZOLE 40 MG TABLET (FP) PO SCH ×2 (09:53→21:24)
[2017-08-18] MEDS: ALLOPURINOL 100 MG TABLET (FP) PO SCH (09:53)
--- NOTE | 2017-08-18 12:16 | CON.GU ---
Consult - History of Present Illness History of Present Illness: 89 yo male admitted with diarrhea. Pt has a h/o BPH and elevated PSA of 8. Reportedly saw Dr Daugherty approximately one year ago for same. MRI at that time did not show any suspicion of prostate cancer so biopsy not done. Voids frequently but no dysuria or hematuria. CT scan shows markedly enlarged prostate with thickened bladder wall. UA and culture are negative - Past Medical History Cardio/Vascular: Yes: CAD (s/p CABG 1987), HTN, Hyperlipdemia Gastrointestinal: Yes: Constipation, Gastritis, GERD, Hemorrhoids, Peptic Ulcer Disease (duodenal ulcer 2001, gastric ulcers 2005) Hepatobiliary: Yes: Cholelithiasis Renal/: Yes: BPH Musculoskeletal: Yes: Chronic low back pain (spinal stenosis) Rheumatology: Yes: Gout Dermatology: Yes: Other (Multiple cutaneous Kaposi sarcoma excisions) - Past Surgical History Past Surgical History: Yes: CABG (1987), Colonoscopy, Hernia Repair (RIH and LIH ), Tonsillectomy, Upper Endoscopy Additional Surgical History: multiple Kaposi sarcoma excisions. bilateral stapedectomies. deviated septum repair and nasal polypectomy - Alcohol/Substance Use Hx Alcohol Use: Yes (1 BEER DAILY) - Smoking History Smoking history: Former smoker Have you smoked in the past 12 months: No - Social History Usual Living Arrangement: With Child ADL: Family Assistance History of Recent Travel: No Home Medications - Allergies Allergies/Adverse Reactions: Allergies Allergy/AdvReac Type Severity Reaction Status Date / Time No Known Allergies Allergy Verified 08/16/17 13:04 - Home Medications Home Medications: Ambulatory Orders Clopidogrel Bisulfate [Plavix] 75 mg PO DAILY 08/16/12 Lisinopril [Prinivil -] 20 mg PO DAILY 07/01/13 Furosemide [Lasix -] 40 mg PO Q48H 08/03/15 Cyanocobalamin (Vitamin B-12) [Vitamin B12] 1,000 mcg PO DAILY 08/03/16 Ubidecarenone/Vit E Acet [Co Q-10 100 mg Softgel] 1 each PO DAILY 08/03/16 hydrALAZINE HCL [Apresoline -] 25 mg PO BID 08/03/16 Allopurinol [Zyloprim -] 100 mg PO DAILY 08/16/17 Atorvastatin Ca [Lipitor] 20 mg PO HS 08/16/17 Metoprolol Tartrate 50 mg PO BID 08/16/17 Family Disease History - Family Disease History Family Disease History: Heart Disease: Mother ( CHF), CA: Brother (prostate cancer), Sister (breast cancer), Other: Father ( septic shock) Other Family History: grandauarlene has ulcerative colitis Review of Systems - Review of Systems Genitourinary: reports: Frequency Physical Exam- Vital Signs: Vital Signs Temperature 98.2 F 08/18/17 06:00 Pulse Rate 66 08/18/17 06:00 Respiratory Rate 18 08/18/17 06:00 Blood Pressure 113/48 08/18/17 06:00 O2 Sat by Pulse Oximetry (%) 98 08/18/17 06:00 Renal/: Yes: WNL Kidneys: Yes: WNL Pelvis: Yes: WNL Labs: CBC, BMP 08/18/17 07:00 08/18/17 07:00 Imaging - Results Cat Scan: Report Reviewed Problem List - Problems (1) Elevated PSA Assessment/Plan: in light of age and normal psa, would monitor psa and repeat in 6mos. outpt f/u for repeat urinanalysis and bladder sonogram Code(s): R97.20 - ELEVATED PROSTATE SPECIFIC ANTIGEN [PSA]
--- NOTE | 2017-08-18 13:59 | PN ---
Progress Note, Physician Chief Complaint: no new compliants, hemodynamically stable - Current Medication List Current Medications: Active Medications Allopurinol (Zyloprim -) 100 mg PO DAILY [facility] Last Admin: 08/18/17 09:53 Dose: 100 mg Atorvastatin Calcium (Lipitor -) 20 mg PO HS [facility] Last Admin: 08/17/17 21:32 Dose: 20 mg Clopidogrel Bisulfate (Plavix -) 75 mg PO DAILY [facility] Last Admin: 08/18/17 09:53 Dose: 75 mg Hydralazine HCl (Apresoline -) 25 mg PO BID [facility] Last Admin: 08/18/17 09:53 Dose: 25 mg Dextrose/Sodium Chloride (D5-1/2ns -) 1,000 mls @ 125 mls/hr IV ASDIR [facility] Last Admin: 08/18/17 09:53 Dose: 125 mls/hr Metoprolol Tartrate (Lopressor -) 50 mg PO BID [facility] Last Admin: 08/18/17 09:53 Dose: 50 mg Pantoprazole Sodium (Protonix -) 40 mg PO BID [facility] Last Admin: 08/18/17 09:53 Dose: 40 mg - Objective Vital Signs: Vital Signs Temperature 97.7 F 08/18/17 10:00 Pulse Rate 70 08/18/17 10:00 Respiratory Rate 17 08/18/17 10:00 Blood Pressure 136/60 08/18/17 10:00 O2 Sat by Pulse Oximetry (%) 98 08/18/17 06:00 Elderly man not in distress HEENT: Mm moist, no anemia, PEERLA, EOMI, NECK; No JVd No Bruit CHEST: CTA B/L CVS; S1S2 IR no m/g/r ABDOMEN: Obese non tender BS+ EXT; TRANSITIONAL STUDIES INSTRUCTOR: AOx3 non focal Labs: CBC, BMP 08/18/17 07:00 08/18/17 07:00 INR, PTT INR 1.20 (0.82-1.09) H 08/16/17 14:48 Problem List - Problems (1) Acute diarrhea Assessment/Plan: Improved no loose stool Code(s): R19.7 - DIARRHEA, UNSPECIFIED (2) CKD (chronic kidney disease) stage 3, 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 Code(s): N18.3 - CHRONIC KIDNEY DISEASE, STAGE 3 (MODERATE) (3) Colitis Assessment/Plan: Improving diarrhea, resolving Code(s): K52.9 - NONINFECTIVE GASTROENTERITIS AND COLITIS, UNSPECIFIED (4) Dehydration Assessment/Plan: Improving with IV Hydration F/U BMP Code(s): E86.0 - DEHYDRATION (5) HTN (hypertension) Assessment/Plan: well controlled cont current mangement Code(s): I10 - ESSENTIAL (PRIMARY) HYPERTENSION
[2017-08-18] MEDS ORDERED: DEXTROSE 5%-0.45% SALINE 1,000 ML IV SCH ×2 (14:30→14:45)
[2017-08-18] MEDS: ATORVASTATIN CA 20 MG TABLET (FP) PO SCH (21:24)
--- NOTE | 2017-08-18 23:13 | CON.NEP ---
Consult - History of Present Illness History of Present Illness: admitted with diarrhea and dehydration labs show jonathan on ckd - Past Medical History Cardio/Vascular: Yes: CAD (s/p CABG 1987), HTN, Hyperlipdemia Gastrointestinal: Yes: Constipation, Gastritis, GERD, Hemorrhoids, Peptic Ulcer Disease (duodenal ulcer 2001, gastric ulcers 2005) Hepatobiliary: Yes: Cholelithiasis Renal/: Yes: BPH Musculoskeletal: Yes: Chronic low back pain (spinal stenosis) Rheumatology: Yes: Gout Dermatology: Yes: Other (Multiple cutaneous Kaposi sarcoma excisions) - Past Surgical History Past Surgical History: Yes: CABG (1987), Colonoscopy, Hernia Repair ([facility] and [facility] ), Tonsillectomy, Upper Endoscopy Additional Surgical History: multiple Kaposi sarcoma excisions. bilateral stapedectomies. deviated septum repair and nasal polypectomy - Alcohol/Substance Use Hx Alcohol Use: Yes (1 BEER DAILY) - Smoking History Smoking history: Former smoker Have you smoked in the past 12 months: No - Social History Usual Living Arrangement: With Child ADL: Family Assistance History of Recent Travel: No Home Medications - Allergies Allergies/Adverse Reactions: Allergies Allergy/AdvReac Type Severity Reaction Status Date / Time No Known Allergies Allergy Verified 08/16/17 13:04 - Home Medications Home Medications: Ambulatory Orders Clopidogrel Bisulfate [Plavix] 75 mg PO DAILY 08/16/12 Lisinopril [Prinivil -] 20 mg PO DAILY 07/01/13 Furosemide [Lasix -] 40 mg PO Q48H 08/03/15 Cyanocobalamin (Vitamin B-12) [Vitamin B12] 1,000 mcg PO DAILY 08/03/16 Ubidecarenone/Vit E Acet [Co Q-10 100 mg Softgel] 1 each PO DAILY 08/03/16 hydrALAZINE HCL [Apresoline -] 25 mg PO BID 08/03/16 Allopurinol [Zyloprim -] 100 mg PO DAILY 08/16/17 Atorvastatin Ca [Lipitor] 20 mg PO HS 08/16/17 Metoprolol Tartrate 50 mg PO BID 08/16/17 Family Disease History - Family Disease History Family Disease History: Heart Disease: Mother ( CHF), CA: Brother (prostate cancer), Sister (breast cancer), Other: Father ( septic shock) Other Family History: grandaughter has ulcerative colitis Nephrology Consult - Height Height: 5 ft 7 in - Weight Weight: 178 lb - BMI Body Mass Index (BMI): 27.8 - Lab Results CBC,BMP: CBC, BMP 08/18/17 07:00 08/18/17 07:00 Anion Gap: Anion Gap Anion Gap 8 (8-16) 08/18/17 07:00 - Physical Examination Vital Signs: Vital Signs Temperature 97.4 F L 08/18/17 21:35 Pulse Rate 60 08/18/17 21:35 Respiratory Rate 20 08/18/17 21:35 Blood Pressure 120/60 08/18/17 21:35 O2 Sat by Pulse Oximetry (%) 98 08/18/17 06:00 Constitutional: Yes: Well Nourished, No Distress, Calm Eyes: Yes: WNL, Conjunctiva Clear, EOM Intact HENT: Yes: WNL, Atraumatic, Normocephalic Neck: Yes: WNL, Supple, Trachea Midline Cardiovascular: Yes: WNL, Regular Rate and Rhythm Respiratory: Yes: WNL, Regular, CTA Bilaterally Gastrointestinal: Yes: WNL, Normal Bowel Sounds Renal/: Yes: WNL Musculoskeletal: Yes: WNL Extremities: Yes: WNL Edema: Yes Edema: LLE: 3+, RLE: 3+ Integumentary: Yes: WNL Neurological: Yes: WNL, Alert, Oriented Psychiatric: Yes: WNL, Alert, Oriented Assessment/Plan prerenal azotemia/ dehydration 2/2 diarrhea which is resolving renal function improving already withIVF
[2017-08-19 06:37] LABS: TRANSGLUTAMINASE IGA < 2 U/mL (0-3)
[2017-08-19 06:37] LABS: SERUM IRON SATURATION 36 % (15-55); TOTAL IRON BINDING CAPACITY 163 ug/dL (250-450); UIBC 104 ug/dL (111-343)
[2017-08-19 09:31] LABS: BASO % 0.5 % (0-2.0); HEMATOCRIT 28.8 % (35.4-49); HEMOGLOBIN 9.8 GM/dL (11.7-16.9); LYMPH % 13.7 % (8-40); MCH 33.5 pg (25.7-33.7); MCHC 34.1 g/dl (32.0-35.9); MEAN CELL VOLUME 98.3 fl (80-96); MEAN PLT VOLUME 7.6 fl (7.5-11.1); MONO % 8.8 % (3.8-10.2); PLATELET COUNT 132 K/MM3 (134-434); RBC 2.93 M/mm3 (4.00-5.60); RDW 13.9 % (11.9-15.9); WHITE BLOOD COUNT 7.6 K/mm3 (4.0-10.0)
[2017-08-19 10:08] LABS: CHLORIDE 115 mmol/L (98-107); POTASSIUM 4.3 mmol/L (3.5-5.1); SODIUM 141 mmol/L (136-145)
[2017-08-19] MEDS: METOPROLOL TARTRATE 50 MG TABLET (FP) PO SCH (10:08)
[2017-08-19] MEDS: ALLOPURINOL 100 MG TABLET (FP) PO SCH (10:09)
[2017-08-19] MEDS: CLOPIDOGREL BISULFATE 75 MG TABLET (FP) PO SCH (10:09)
[2017-08-19] MEDS: hydrALAZINE HCL 25 MG TABLET (FP) PO SCH (10:09)
[2017-08-19] MEDS: PANTOPRAZOLE 40 MG TABLET (FP) PO SCH (10:09)
[2017-08-19 10:43] LABS: ANION GAP 9 (8-16); BLOOD UREA NITROGEN 43 mg/dL (7-18); CALCIUM 7.8 mg/dL (8.5-10.1); CO2 17 mmol/L (21-32); CREATININE 2.8 mg/dL (0.7-1.3); GLUCOSE,RANDOM 128 mg/dL (74-106)
[2017-08-19 13:21] VITALS: BP 140/59; PULSE 68; TEMP 98
--- NOTE | 2017-08-19 13:38 | DS ---
Physical Examination Vital Signs: Vital Signs Temperature 98 F 08/19/17 11:00 Pulse Rate 68 08/19/17 11:00 Respiratory Rate 20 08/19/17 11:00 Blood Pressure 140/59 08/19/17 11:00 O2 Sat by Pulse Oximetry (%) 98 08/18/17 21:00 Elderly man comfortable HEENT: Mm moist , mild anemia NECK: No JVd No Bruit CHEST: CTA B/L CVs; S1S2 R no m/g/r ABD: Obese non tender EXT: B/L Edema feet, non tender, Pulses + [employer]; AOx3 non focal Labs: CBC, BMP 08/19/17 08:55 08/19/17 08:55 Discharge Summary Reason For Visit: ACUTE DIARRHEA Current Active Problems Acute diarrhea (Acute) CKD (chronic kidney disease) stage 3, GFR 30-59 ml/min (Acute) Elevated PSA (Acute) Renal failure (Acute) Condition: Stable - Instructions Diet, Activity, Other Instructions: Kepp your self Hydrated drink 1500 CC to 2000 CC/day F/U your MD on Sunday08/22/2017 to Check BMP Referrals: Khadar Meyer MD [Primary Care Provider] - 08/22/17 Disposition: HOME - Home Medications Comprehensive Discharge Medication List: Ambulatory Orders Clopidogrel Bisulfate [Plavix -] 75 mg PO DAILY 08/16/12 Cyanocobalamin (Vitamin B-12) [Vitamin B12] 1,000 mcg PO DAILY 08/03/16 hydrALAZINE HCL [Apresoline -] 25 mg PO BID 08/03/16 Allopurinol [Zyloprim -] 100 mg PO DAILY 08/16/17 Atorvastatin Ca [Lipitor] 20 mg PO HS 08/16/17 Metoprolol Tartrate 50 mg PO BID 08/16/17 Pantoprazole Sodium [Protonix -] 40 mg PO BID #15 tablet.ec 08/19/17
--- NOTE | 2017-08-19 14:06 | PN ---
Progress Note (short form) - Note Progress Note: Active Medications Allopurinol (Zyloprim -) 100 mg PO DAILY [facility] Last Admin: 08/19/17 10:09 Dose: 100 mg Atorvastatin Calcium (Lipitor -) 20 mg PO HS [facility] Last Admin: 08/18/17 21:24 Dose: 20 mg Clopidogrel Bisulfate (Plavix -) 75 mg PO DAILY [facility] Last Admin: 08/19/17 10:09 Dose: 75 mg Hydralazine HCl (Apresoline -) 25 mg PO BID [facility] Last Admin: 08/19/17 10:09 Dose: 25 mg Dextrose/Sodium Chloride (D5-1/2ns -) 1,000 mls @ 75 mls/hr IV ASDIR [facility] Last Admin: 08/18/17 21:26 Dose: 75 mls/hr Metoprolol Tartrate (Lopressor -) 50 mg PO BID [facility] Last Admin: 08/19/17 10:08 Dose: 50 mg Pantoprazole Sodium (Protonix -) 40 mg PO BID [facility] Last Admin: 08/19/17 10:09 Dose: 40 mg Last Vital Signs Temp Pulse Resp BP Pulse Ox 98 F 68 20 140/59 98 08/19/17 11:00 08/19/17 11:00 08/19/17 11:00 08/19/17 11:00 08/18/17 21:00 CBC, BMP 08/19/17 08:55 08/19/17 08:55 Prerenal azotemia renal function is improving not yet at baseline Plan- his iv access is out he is being discharged he is taking oral fluids he will need close follow up of his renal function after discharge
[2017-08-22 00:10] LABS: TRANSGLUTAMINASE IGG < 2 U/mL (0-5)
[2017-08-24 14:17] LABS: VASOACTIVE INTEST, POLYPEPTIDE 20.3 pg/mL (0.0-58.8)
== END 2017-08-19 16:23 | disposition home or self-care (01) | DRG 392 ==
LOC: JER 12:54 → JERBED 15:41 → OBSVTOIN 08-17 09:42 → J6S 08-17 14:17
PROVIDERS: ADMIT Internal Medicine; ATTEND Internal Medicine
PROC: 0DJD8ZZ Inspection of Lower Intestinal Tract, Via Natural or Artificial Opening Endoscopic (ICD-10-PCS; principal; 2017-08-17 11:45)
DX: A08.4 Viral intestinal infection, unspecified (principal); N17.9 Acute kidney failure, unspecified; R19.7 Diarrhea, unspecified; I25.10 Atherosclerotic heart disease of native coronary artery without angina pectoris; Z95.1 Presence of aortocoronary bypass graft; E78.5 Hyperlipidemia, unspecified; E83.42 Hypomagnesemia; I12.9 Hypertensive chronic kidney disease with stage 1 through stage 4 chronic kidney disease, or unspecified chronic kidney disease; N18.3 Chronic kidney disease, stage 3 (moderate); E86.0 Dehydration; D64.9 Anemia, unspecified; K57.90 Diverticulosis of intestine, part unspecified, without perforation or abscess without bleeding; K64.8 Other hemorrhoids
CPT/HCPCS: 36415; 71046-TC-FY; 74176-TC; 80048; 80053; 81003; 82150; 82272; 82570; 82728; 83516; 83540; 83550; 83690; 83735; 83880; 84100; 84540; 84586; 85025; 85044; 85610; 86140; 86671; 86704; 86706; 86708; 87040; 87045; 87046; 87086; 87177; 87205; 87209; 87324; 87340; 87449; 93005; 93010; 93306-TC; 99285-25; G0378; J7030